=== PATIENT | female | born 1955 | race Caucasian/White ===

== ENCOUNTER → 2023-10-17 10:27 | Outpatient (REF) | payer MEDICARE, OTHER, SELFPAY | LOC: WDC 10:27 | PROVIDERS: ATTENDING PHYSICIAN Obstetrics & Gynecology Gynecology; FAMILY PHYSICIAN Family Medicine | DX: Z12.31 Encounter for screening mammogram for malignant neoplasm of breast (principal); Z80.3 Family history of malignant neoplasm of breast | CPT/HCPCS: 77063; 77067 ==

== ENCOUNTER → 2023-10-25 14:14 | Outpatient (REF) | payer MEDICARE, OTHER, SELFPAY | LOC: RAD 14:14 | PROVIDERS: ATTENDING PHYSICIAN Obstetrics & Gynecology Gynecology; FAMILY PHYSICIAN Family Medicine | DX: M81.0 Age-related osteoporosis without current pathological fracture (principal) | CPT/HCPCS: 77080 ==

== ENCOUNTER 2024-09-04 06:07 | Day surgery (SDC) | payer MEDICARE, OTHER, SELFPAY ==
--- NOTE | 2024-08-22 12:45 | PTCARENOTE ---
Patient reporting family hx of Malignant Hyperthermia. RN updated the allergy list, notified Vianca Zepeda, Shaneka Humphreys, Juan Martel and Snow Davis. No further actions required at this time.
[2024-08-26 12:55] VITALS: BMI 24.5
--- NOTE | 2024-08-26 14:16 | HPS.HSE ---
Family Physician
-
Family Physician: NO INTERVIEW UNKNOWN
Chief Complaint
-
Paroxysmal atrial fibrillation and atrial flutter.
History of Present Illness
The patient is a 69-year-old female presenting today for paroxysmal atrial fibrillation. The patient is relatively asymptomatic with this diagnosis. She is on current pharmacological therapy with Metoprolol Succinate. Unfortunately, rate
controlling options have been limited due to bradycardia and conversion pauses noted on her most recent CAM in March 2024. She reports she has been compliant with Eliquis for oral anticoagulation due to a [id number] of 2. She is interested in
pursuing with pulmonary vein isolation for further arrhythmia management. She denies any current complaints today such as chest pain and shortness of breath at rest, palpitations, nausea, vomiting, diarrhea, lightheadedness, dizziness, cough, sore
throat, or fever.
Medical History
Past Medical History
Past Medical History: Reports Other
Additional Past Medical History:
1. Paroxysmal atrial fibrillation and atrial flutter, pharmacological therapy with Metoprolol Succinate and oral anticoagulation with Eliquis.
2. Atrial tachycardia.
3. PACs.
4. Sinus bradycardia and conversion pauses on CAM 03/2024.
5. Dyslipidemia.
6. Mild-moderate mitral regurgitation.
7. Tiny left lower lobe tree-in-bud nodule of doubtful clinical significance.
8. Colon polyps.
9. Diverticulosis.
10. Migraines.
11. Vertigo.
12. Graves disease.
13. Osteoarthritis.
14. Left sided breast cancer, 2001, status post left lumpectomy, chemotherapy, and radiation.
15. Osteopenia.
16. Strong family history of malignant hyperthermia.
17. Mild hyponatremia.
Past Surgical History: Reports Other
Additional Past Surgical History:
1. Left lumpectomy.
2. Left thumb CMC arthroplasty.
3. Colonoscopy x3.
Social History
Tobacco: Non-smoker
Alcohol: Other (Social alcohol use reported on weekends. )
Personal:
Living: Other (She lives in a 2 story home with her . )
Family History
Family History: Other (She reports an uncle and male cousin with malignant hyperthermia. )
Allergies / Home Medications
Allergy/Medication List:
Home medications:
1. Eliquis 5 mg p.o. twice a day.
2. Biotin 5000 mcg p.o. daily.
3. Calcium carbonate 500 mg p.o. three times a day.
4. Collagen 1 tablet p.o. three times a day.
5. Fiber therapy powder 3 tsp p.o. daily.
6. Folic acid 400 mcg p.o. daily.
7. Levothyroxine 75 mcg p.o. daily.
8. Lysine 1000 mg p.o. daily.
9. Metoprolol Succinate 25 mg p.o. at bedtime.
10. Multivitamin 1 tablet p.o. daily.
11. Selenium 200 mcg p.o. daily.
Allergies: Desflurane. Doxycycline. Halothane. Isoflurane. Sevoflurane. Succinylcholine.
Adverse drug reactions: Oxycodone. Morphine.
Review of Systems
-
A 12 point ROS was completed and negative except as noted: Yes
Physical Exam
Vital Signs
Blood pressure 135/72. Heart rate 60. Respirations 18. Pulse ox 99% on room air.
Height 5 feet, 2 inches. Weight 60.7 kg. BMI 24.5.
Physical Exam
General: Well Developed, Well Nourished and No Apparent Distress
HEENT: NormoCephalic, Moist mucous membranes, Atraumatic and PERRLA
Respiratory: Clear
Cardiac: Regular Rhythm
GI: Soft, Non Tender and Non Distended
Musculoskeletal: No Edema and Normal Gait & Station
Skin: Warm and Dry
Neuro: AO x 3 and Nonfocal/grossly intact
Laboratory Results
-
DIAGNOSTIC STUDIES as of 08/26/2024: White blood cell count 5.3. Hemoglobin 13.1. Platelet count 327,000. PT 15.3. INR 1.17. Sodium 134. Potassium 4.3. BUN 13. Creatinine 0.8. Glucose 92. Calcium 9.6. Magnesium 1.9. AST 30. ALT 26. Albumin 4.6. Type
and screen A positive.
EKG 08/26/2024: Normal sinus rhythm.
Chest CT 08/26/2024: Short segment common vestibule for the left superior and inferior pulmonary veins, fairly commonly seen and considered normal variant. No evidence for left atrial thrombus. Tiny left lower lobe tree-in-bud nodule, of doubtful
clinical significance.
Exercise stress test 03/08/2023: Overall, low risk treadmill test but significant atrial flutter, PACs, and atrial tachycardia michael-procedural.
Echocardiogram 02/20/2023: Normal left ventricular size, wall thickness, and systolic function. No regional wall motion abnormalities are seen. LV ejection fraction is 55-60% by Orellana's method of discs. Normal diastolic function. Normal right
ventricular size and function. Thickened mitral valve leaflets. Mitral annular calcification. Mild to moderate mitral regurgitation. The aortic root is of top normal size at 3.7cm. No prior study available for comparison.
Impression/Plan
-
IMPRESSION/PLAN:
1. Paroxysmal atrial fibrillation: The patient is in need of pulmonary vein isolation with Dr. Hemant Weinstein on 09/04/2024. The benefits and risks of the procedure have been explained to the patient. The patient understands these risks and wishes to
proceed. She will not be required to undergo a pre-procedural transesophageal echocardiogram as she has been compliant with her home oral anticoagulation. She is aware to continue her Eliquis uninterrupted prior to her upcoming procedure. She will
take no medications the morning of her ablation.
2. Pulmonary nodule on pre-ablation chest CT: Her left lower nodule is tiny and of doubtful clinical significance; however, per radiology, if the patient is considered high risk, an optional follow-up noncontrast chest CT can be obtained in 12
months. These results were discussed with the patient through phone call 08/27/2024. A copy of her chest CT was forwarded to her primary care physician, Dr. Alexsandra Rosales, for potential follow-up and management.
[2024-09-04] VITALS (16 sets, daily range): BP systolic 79–124; BP diastolic 43–75
[2024-09-04 08:43] LABS: ACT-LR - POC 316 Seconds (116-155)
[2024-09-04 09:02] LABS: ACT-LR - POC 382 Seconds (116-155)
[2024-09-04 09:36] LABS: ACT-LR - POC 380 Seconds (116-155)
[2024-09-04 09:46] LABS: ACT-LR - POC 387 Seconds (116-155)
[2024-09-04 09:58] LABS: ACT-LR - POC 160 Seconds (116-155)
--- NOTE | 2024-09-04 10:45 | ITS.CL.ABL ---
[facility] - Ablation
Ablation
Procedure Report:
Primary Assembler Piano: Klarissa Morales DO
Procedure Date: 09/04/2023
Patient History:
Patient is very pleasant 69-year-old female with past medical history significant for Graves' disease, dyslipidemia, insomnia, mitral valve disease, history of breast cancer, history of chemotherapy, paroxysmal symptomatic atrial fibrillation with
conversion pauses..
See H&P for complete details.
Indication:
Symptomatic paroxysmal atrial fibrillation with conversion pauses
Arrhythmia Specific History:
Prior Medical Therapies for Rate and Rhythm Control:
X Beta-odell
[ ] Calcium channel-odell
[ ] Amiodarone
[ ] Dronederone
[ ] Sotalol
[ ] Flecainide
[ ] Dofetilide
X Options limited by bradycardia
[ ] Options limited by comorbid renal disease
Prior Procedural Therapies for AF/AFL:
[ ] Cardioversion
[ ] Pulmonary Vein Isolation
[ ] Posterior Wall Isolation
[ ] Additional lines (Specify)
[ ] Surgical Montiel-MAZE or PVI (Specify)
Procedure Performed:
X AF ablation procedure (62650) -- includes LA/CS pacing, trans-septal, 3D mapping, + ICE
[ ] +IV drug (46995)
[ ] +Other Arrhythmia (79235)
[ ] +Other AF Line/ablation (36835)
Risks and expected recovery has been explained in detail. Alternative options have been explored, and in a shared-decision making fashion we have decided that this was the most appropriate procedure.
Method
NPO status confirmed. Grounding pad applied. Defibrillator pads applied. Continuous surface ECG, pulse oximetry, and blood pressure were monitored. Procedure was performed under general anesthesia, with anesthesia services.
Both groins were clipped, prepped with Chloraprep, and draped in sterile fashion. Time out was called. Local anesthesia administered with bupivacaine. The right femoral vein was accessed for catheter placement, using ultrasound guidance (images
saved to record), micro-puncture needle/wire, and modified seldinger technique. 3 sheaths were placed. The following catheters were used:
[ ] Tacticath SE (D/F Curve) ablation catheter
X Viewflex 9Fr ICE catheter
X Inquiry decapolar 6Fr diagnostic catheter
[ ] CRD Hex 6Fr
[ ] Arctic Front Advance Cryoballoon ([ ]28mm[ ]23mm)
[ ] Achieve Advance mapping catheter ([ ]15mm[ ]20mm)
X FlexCath Contour 10 Fr with PulseSelect PFA Catheter
X Advisor HD Grid Mapping Catheter, SE
[ ] AcusRingMD AcuNav 8 Fr ICE catheter
[ ]Other: [ ]
Intracardiac ultrasound (ICE) was carefully advanced into the right atrium to guide sheath placement over a J-wire, catheter placement, guide trans-septal puncture, identify potential complications, identify anatomic structures and ensure proper
contact between ablation catheter and tissue.
Heparin was given prior to trans-septal puncture. Heparin was given to achieve and maintain a target ACT of 300-400 seconds throughout the procedure.
Trans-septal access was performed under ICE guidance. The trans-septal puncture was performed with a SafeSept wire through a Brockenbrough needle assembly through the steerable sheath. The wire was visualized as it entered the LSPV and system
advanced under ICE guidance and fluoroscopy into the LA. The Brockenbrough needle assembly, SafeSept wire and sheath dilator were removed under negative pressure. LA pressure was measured and recorded.
ICE and 3D mapping was performed to identify relevant cardiac structures. A careful 3D map was created to assess for regions of low-voltage and abnormal electrogram signals using HD grid mapping catheter and PulseSelect catheter. Additional mapping
was performed as outlined below.
Prior to ablation, glycopyrrolate was provided. PulseSelect catheter was advanced over J-wire to the ostium of each vein. Pulmonary vein isolation was performed with ostial and antral lesions in a circumferential manner. Contact was visualized via
EAM, ICE, fluoroscopy, and EGM signals. Following completion of ablation lesions, a post-ablation voltage/activation map was performed in sinus rhythm. Entrance and exit block were confirmed for each vein.
Catheter and sheath were removed from the left atrium and post-ablation intracardiac echo evaluation was consistent with pre-ablation with no changes and no pericardial effusion and there is no left atrial thrombus or left ventricle thrombus seen.
Electrophysiology study was performed. Hemostasis was obtained with figure of 8 stitch for each groin and with manual pressure. Protamine was used for reversal.
Estimated Blood Loss
5 mL
Complications
None
Fluoroscopy: 2.8 minutes; 6.69 mGy; DAP 0.838
Baseline Intervals:
Rhythm: SR
WI: 154 ms
QRS: 111 ms
QT: 451 ms
QTc: 431 ms
A-A: 1094 ms
R-R: 1094 ms
Post-Procedure Intervals:
WI: 164 ms
QRS: 11 ms
QT: 409 ms
QTc: 496 ms
A-A: 680 ms
R-R: 680 ms
AVWB: 340 ms
AERP: 600/250 ms
Recommendations
- Bedrest with straight-leg precautions as ordered
- Anticipate same day discharge if patient meeting clinical metrics
- Resume home medications as indicated
- Ok to resume anticoagulation tonight if patient and groin sites stable
- PPI daily for 30 days
- Plan for follow-up in office as scheduled
Hemant Weinstein DO
[facility] [employer] [facility] [employer]
cc: Klarissa Morales, DO; Alexsandra Rosales, DO
[2024-09-04 12:24] LABS: ACT-LR - POC > 397 Seconds (116-155)
--- NOTE | 2024-09-04 15:06 | W.PN.UPDATE ---
Update Note
Progress Note Update
69 yo WF s/p PVI (same day). She denies cp, sob, dane diet, voiding, amb w/o dizziness, EKG SR, R fem c/d/i no HT, soft. She will resume Eliquis tonight. We will add PPI for 30 days. Activity restrictions reviewed. She will f/u Dr. Sotelo in 1 mo.
She is for d/c home after 3pm.
== END 2024-09-04 15:00 | disposition home or self-care (01) ==
LOC: CATH 06:07
PROVIDERS: ATTENDING PHYSICIAN Internal Medicine Cardiovascular Disease; FAMILY PHYSICIAN Family Medicine; OTHER PHYSICIAN Internal Medicine Cardiovascular Disease
DX: I48.0 Paroxysmal atrial fibrillation (principal); E78.5 Hyperlipidemia, unspecified; I48.92 Unspecified atrial flutter; M19.90 Unspecified osteoarthritis, unspecified site; M85.80 Other specified disorders of bone density and structure, unspecified site; Z79.01 Long term (current) use of anticoagulants; Z79.890 Hormone replacement therapy; Z79.899 Other long term (current) drug therapy; Z85.3 Personal history of malignant neoplasm of breast; Z86.0100 Personal history of colon polyps, unspecified; Z88.1 Allergy status to other antibiotic agents; Z88.5 Allergy status to narcotic agent; Z92.21 Personal history of antineoplastic chemotherapy; E05.00 Thyrotoxicosis with diffuse goiter without thyrotoxic crisis or storm; I34.0 Nonrheumatic mitral (valve) insufficiency
CPT/HCPCS: C1732; C1894; C1730; C1769; C1733; C1766; 85347; 86900; 86901; 93005; 93656

== ENCOUNTER 2024-10-30 06:22 | Day surgery (SDC) | payer MEDICARE, OTHER, SELFPAY | END 2024-10-30 12:35 | disposition home or self-care (01) | LOC: GI 06:22 | PROVIDERS: ATTENDING PHYSICIAN Internal Medicine Gastroenterology; FAMILY PHYSICIAN Family Medicine | DX: Z12.11 Encounter for screening for malignant neoplasm of colon (principal); Z86.0100 Personal history of colon polyps, unspecified; K64.8 Other hemorrhoids; K57.30 Diverticulosis of large intestine without perforation or abscess without bleeding | CPT/HCPCS: G0105 ==